=== PATIENT | male | born 1990 | race Caucasian/White ===

== ENCOUNTER 2018-10-29 20:21 | Observation (INO) | payer OTHER ==
[2018-10-29] MEDS ORDERED: ASPIRIN 81 MG PO STA (21:29)
--- NOTE | 2018-10-29 21:31 | ED ---
General Adult HPI - General Chief complaint: Chest Pain Stated complaint: Chest pain Time Seen by Provider: 10/29/18 21:30 Source: patient Mode of arrival: ambulatory Limitations: no limitations - Related Data Home Medications Medication Instructions Recorded Confirmed No Known Home Medications 10/29/18 10/29/18 Allergies Allergy/AdvReac Type Severity Reaction Status Date / Time No Known Allergies Allergy Verified 10/29/18 21:11 Review of Systems ROS Statement: Those systems with pertinent positive or pertinent negative responses have been documented in the HPI. ROS Other: All systems not noted in ROS Statement are negative. Past Medical History Past Medical History: No Reported History History of Any Multi-Drug Resistant Organisms: None Reported Past Surgical History: No Surgical Hx Reported Past Psychological History: No Psychological Hx Reported Smoking Status: Never smoker Past Alcohol Use History: Occasional Past Drug Use History: None Reported General Exam Limitations: no limitations Course Vital Signs 10/29/18 10/29/18 20:38 22:50 Temperature 99.1 F Pulse Rate 65 76 Respiratory 16 20 Rate Blood Pressure 194/100 134/84 O2 Sat by Pulse 96 98 Oximetry Medical Decision Making - Medical Decision Making Dictation was produced using [employer] dictation software. please excuse any grammatical, word or spelling errors. Chief Complaint: 28-year-old obese male presents chief complaint of chest pressure. History of Present Illness: Patient states that he is here today for chest pressure. Patient denies any medical problems. He does have strong family history of heart attacks in his father who had a heart attack at the age of 42. Patient reports that he was in the basement cleaning up when he had a couple episodes of chest pressure. Reports that symptoms resolved spontaneously. Patient did not want come to the emergency department however his significant other urged him to come. Patient does not have any symptoms at this time. Denies any numbness, paresthesias to his arms or legs. The ROS documented in this emergency department record has been reviewed and confirmed by me. Those systems with pertinent positive or negative responses have been documented in the HPI. All other systems are other negative and/or noncontributory. PHYSICAL EXAM: General Impression: Alert and oriented x3, not in acute distress HEENT: Normocephalic atraumatic, extra-ocular movements intact, pupils equal and reactive to light bilaterally, mucous membranes moist. Cardiovascular: Heart regular rate and rhythm, S1&S2 audible, no murmurs, rubs or gallops Chest: Lungs clear to auscultation bilaterally, no rhonchi, no wheeze, no rales Abdomen: Bowel sounds present, abdomen soft, non-tender, non-distended, no organomegaly Musculoskeletal: Pulses present and equal in all extremities, no peripheral edema Motor: Power 5/5 bilaterally, no focal deficits noted Neurological: CN II-XII grossly intact, no focal motor or sensory deficits noted Skin: Intact with no visualized rashes Psych: Normal affect and mood ED course: 78-year-old male presents with episode of chest pressure. Patient is obese. Denies any medical problems. Patient does not follow-up regularly with a primary care physician. EKG does not show any signs of STEMI. Vital signs upon arrival showed blood pressure 194 100, rest of vital signs within acceptable limits.Laboratory evaluation obtained. CBC, coag panel, metabolic panel is unremarkable. Cardiac enzymes are negative. Chest x-ray is negative. Patient was observed in emergency department and was symptom-free. Given patient's risk factors and strong family history we will place patient in observation unit for serial troponins. We will also put on a cardiology consultation. I believe patient would benefit from cardiology consultation in possibly cardiac stress test. Patient given aspirin EKG interpretation: Ventricular rate 70, normal sinus rhythm, AL interval 152, care is 78, QTc 412. No AL prolongation, no QTC prolongation, no ST or T-wave changes noted. Overall, this EKG is unremarkable - Lab Data Result diagrams: 10/29/18 21:45 10/29/18 21:45 Lab Results 10/29/18 10/29/18 10/29/18 Range/Units 21:45 21:45 21:45 WBC 8.3 (3.8-10.6) k/uL RBC 5.57 (4.30-5.90) m/uL Hgb 15.4 (13.0-17.5) gm/dL Hct 46.0 (39.0-53.0) % MCV 82.5 (80.0-100.0) fL MCH 27.7 (25.0-35.0) pg MCHC 33.6 (31.0-37.0) g/dL RDW 12.7 (11.5-15.5) % Plt Count 266 (150-450) k/uL Neutrophils % 60 % Lymphocytes % 29 % Monocytes % 6 % Eosinophils % 2 % Basophils % 1 % Neutrophils # 5.0 (1.3-7.7) k/uL Lymphocytes # 2.4 (1.0-4.8) k/uL Monocytes # 0.5 (0-1.0) k/uL Eosinophils # 0.2 (0-0.7) k/uL Basophils # 0.1 (0-0.2) k/uL PT (9.0-12.0) sec INR (<1.2) APTT (22.0-30.0) sec Sodium 139 (137-145) mmol/L Potassium 4.2 (3.5-5.1) mmol/L Chloride 102 (98-107) mmol/L Carbon Dioxide 28 (22-30) mmol/L Anion Gap 9 mmol/L BUN 15 (9-20) mg/dL Creatinine 0.74 (0.66-1.25) mg/dL Est GFR (CKD-EPI)AfAm >90 (>60 ml/min/1.73 sqM) Est GFR (CKD-EPI)NonAf >90 (>60 ml/min/1.73 sqM) Glucose 93 (74-99) mg/dL Calcium 9.5 (8.4-10.2) mg/dL Magnesium 1.8 (1.6-2.3) mg/dL Total Bilirubin 0.9 (0.2-1.3) mg/dL AST 61 H (17-59) U/L ALT 110 H (21-72) U/L Alkaline Phosphatase 64 (38-126) U/L Total Creatine Kinase 135 (55-170) U/L CK-MB (CK-2) 0.5 (0.0-2.4) ng/mL CK-MB (CK-2) Rel Index 0.4 Troponin I <0.012 (0.000-0.034) ng/mL Total Protein 7.7 (6.3-8.2) g/dL Albumin 4.6 (3.5-5.0) g/dL 10/29/18 Range/Units 21:45 WBC (3.8-10.6) k/uL RBC (4.30-5.90) m/uL Hgb (13.0-17.5) gm/dL Hct (39.0-53.0) % MCV (80.0-100.0) fL MCH (25.0-35.0) pg MCHC (31.0-37.0) g/dL RDW (11.5-15.5) % Plt Count (150-450) k/uL Neutrophils % % Lymphocytes % % Monocytes % % Eosinophils % % Basophils % % Neutrophils # (1.3-7.7) k/uL Lymphocytes # (1.0-4.8) k/uL Monocytes # (0-1.0) k/uL Eosinophils # (0-0.7) k/uL Basophils # (0-0.2) k/uL PT 10.4 (9.0-12.0) sec INR 1.0 (<1.2) APTT 26.8 (22.0-30.0) sec Sodium (137-145) mmol/L Potassium (3.5-5.1) mmol/L Chloride (98-107) mmol/L Carbon Dioxide (22-30) mmol/L Anion Gap mmol/L BUN (9-20) mg/dL Creatinine (0.66-1.25) mg/dL Est GFR (CKD-EPI)AfAm (>60 ml/min/1.73 sqM) Est GFR (CKD-EPI)NonAf (>60 ml/min/1.73 sqM) Glucose (74-99) mg/dL Calcium (8.4-10.2) mg/dL Magnesium (1.6-2.3) mg/dL Total Bilirubin (0.2-1.3) mg/dL AST (17-59) U/L ALT (21-72) U/L Alkaline Phosphatase (38-126) U/L Total Creatine Kinase (55-170) U/L CK-MB (CK-2) (0.0-2.4) ng/mL CK-MB (CK-2) Rel Index Troponin I (0.000-0.034) ng/mL Total Protein (6.3-8.2) g/dL Albumin (3.5-5.0) g/dL Disposition Clinical Impression: Chest pain Disposition: ADMITTED IP TO THIS [facility] Condition: Fair Referrals: Nonstaff,Physician [Primary Care Provider] - 1-2 days Decision Time: 23:22
[2018-10-29 21:57] LABS: Basophils # (A) 0.1 k/uL (0-0.2); Basophils % (A) 1 %; Eosinophils # (A) 0.2 k/uL (0-0.7); Eosinophils % (A) 2 %; HGB 15.4 gm/dL (13.0-17.5); Lymphocytes # (A) 2.4 k/uL (1.0-4.8); Lymphocytes % (A) 29 %; MCH 27.7 pg (25.0-35.0); MCHC 33.6 g/dL (31.0-37.0); MCV 82.5 fL (80.0-100.0); Mean Platelet Volume 6.2; Monocytes # (A) 0.5 k/uL (0-1.0); Monocytes % (A) 6 %; Neutrophils % (A) 60 %; Platelet Count 266 k/uL (150-450); RBC 5.57 m/uL (4.30-5.90); RDW 12.7 % (11.5-15.5); WBC 8.3 k/uL (3.8-10.6)
[2018-10-29 22:05] LABS: ALT 110 U/L (21-72); AST 61 U/L (17-59); Albumin 4.6 g/dL (3.5-5.0); Alkaline Phosphatase 64 U/L (38-126); Anion Gap 9 mmol/L; Blood Urea Nitrogen 15 mg/dL (9-20); Calcium 9.5 mg/dL (8.4-10.2); Carbon Dioxide 28 mmol/L (22-30); Chloride 102 mmol/L (98-107); Creatine Kinase 135 U/L (55-170); Glucose 93 mg/dL (74-99); Magnesium 1.8 mg/dL (1.6-2.3); Potassium 4.2 mmol/L (3.5-5.1); Sodium 139 mmol/L (137-145); Total Bilirubin 0.9 mg/dL (0.2-1.3); Total Protein 7.7 g/dL (6.3-8.2)
[2018-10-29 22:07] LABS: Partial Thromboplastin Time 26.8 sec (22.0-30.0); Prothrombin Time 10.4 sec (9.0-12.0)
--- NOTE | 2018-10-29 22:11 | XR ---
EXAMINATION TYPE: XR chest 2V DATE OF EXAM: 10/29/2018 COMPARISON: NONE HISTORY: Chest pain TECHNIQUE: Frontal and lateral views of the chest are obtained. FINDINGS: Heart and mediastinum are normal. Lungs are clear. Diaphragm is normal. Bony thorax appear s normal. There is a small linear density probably in the right middle lobe consistent with subsegmen kwaku atelectasis. IMPRESSION: Minimal subsegmental atelectasis. Normal heart.
[2018-10-29 22:17] LABS: Creatine Kinase MB 0.5 ng/mL (0.0-2.4); Troponin I <0.012 ng/mL (0.000-0.034)
[2018-10-29] MEDS ORDERED: NITROGLYCERIN SL TABS 0.4 MG TAB SUBLINGUAL PRN (23:22)
[2018-10-30 00:22] VITALS: RESP 18
[2018-10-30 00:30] VITALS: BMI 51.6
[2018-10-30 03:28] LABS: Cholesterol 207 mg/dL (<200); HDL Cholesterol 37 mg/dL (40-60); LDL Cholesterol,Calculated 139 mg/dL (0-99); Triglycerides 153 mg/dL (<150)
[2018-10-30 03:42] LABS: Creatine Kinase 106 U/L (55-170)
[2018-10-30 03:55] LABS: Creatine Kinase MB 0.3 ng/mL (0.0-2.4); Troponin I <0.012 ng/mL (0.000-0.034)
[2018-10-30] MEDS ORDERED: ASPIRIN 325 MG TAB PO SCH (09:00)
[2018-10-30] MEDS ORDERED: LOSARTAN 25 MG TAB PO SCH (09:30)
--- NOTE | 2018-10-30 10:45 | P.CRDCN ---
History of Present Illness History of present illness: This is a pleasant 28-year-old male with no significant past medical history. He is morbidly obese with a BMI of 51. He has not been to a physician for over 7 years. He denies history of coronary artery disease, hypertension, dyslipidemia and diabetes mellitus. We have been asked to see him in consultation for symptoms of chest pain. He states last 2 days he has had a pain that starts in the left precordial region and ripples out like someone is poking through his chest wall. Then it feels like someone is sitting on his chest. The pain lasts for approximately 20-30 seconds at a time and ultimately subsides on its own with no specific alleviating factors. Yesterday the pain came more frequently and consistently. He denies radiation to the arm, back, neck or jaw. He also denies any associated symptoms of shortness of breath, dizziness, palpitations, nausea or vomiting. Blood pressure on arrival 194/100. EKG reveals sinus mechanism with non-specific changes. No ST or T-wave abnormalities. Chest xray negative for an acute cardiopulmonary process. Laboratory data reviewed, WBC 8.3, hemoglobin 15.4, platelets 266, sodium 139, potassium 4.2, creatinine 0.74, AST 61, ALT 110, magnesium 1.8, cardiac enzymes negative 2, LDL 139, HDL 37, triglycerides 153 and total cholesterol 207. He takes no daily cardiac medications At the time of my exam: CONSTITUTIONAL: Denies fever. Denies chills. EYES: Denies blurred vision. Denies vision changes. Denies eye pain. EARS, NOSE, MOUTH & THROAT: Denies headache. Denies sore throat. Denies ear pain. CARDIOVASCULAR: Denies chest pain. Denies shortness of breath. Denies orthopnea. Denies PND. Denies palpitations. RESPIRATORY: Denies cough. GASTROINTESTINAL: Denies abdominal pain. Denies diarrhea. Denies constipation. Denies nausea. Denies vomiting. MUSCULOSKELETAL: Denies myalgias. INTEGUMENTARY: Denies pruitis. Denies rash. NEUROLOGIC: Denies numbness. Denies tingling. Denies weakness. PSYCHIATRIC: Denies anxiety. Denies depression. ENDOCRINE: Denies fatigue. Denies weight change. Denies polydipsia. Denies polyurina. GENITOURINARY: Denies burning, hematuria or urgency with micturation. HEMATOLOGIC: Denies history of anemia. Denies bleeding. Manual blood pressure 145/85 heart rate 64 afebrile maintaining oxygen saturation on room air GENERAL: This is a 28-year-old occasion male in no apparent distress at the time of my examination. Morbidly obese. HEENT: Head is atraumatic, normocephalic. Pupils are equal, round. Sclerae anicteric. Conjunctivae are clear. Mucous membranes of the mouth are moist. Neck is supple. There is no jugular venous distention. No carotid bruit is heard. LUNGS: Clear to auscultation no wheezes, rales or rhonchi. No chest wall tenderness is noted on palpation or with deep breathing. HEART: Regular rate and rhythm without murmurs, rubs or gallops. S1 and S2 heard. ABDOMEN: Soft, nontender. Bowel sounds are heard. No organomegaly noted. EXTREMITIES: No evidence of peripheral edema and no calf tenderness noted. VASCULAR: Radial and dorsalis pedis pulses palpated, no evidence of clubbing. NEUROLOGIC: Patient is awake, alert and oriented x3. ASSESSMENT Chest pain, atypical. An acute coronary event has been ruled out. Hypertension Dyslipidemia Morbid obesity, BMI 51 Family history of premature coronary artery disease with father passing at 52 from [place]. PLAN Acute coronary event has been ruled out. Obtain 2-D echocardiogram and Doppler study to assess cardiac structure and function. Initiate him on losartan 25 mg daily. Recommend he obtain a blood pressure cuff to check his pressures at home, keep a log and bring to his follow-up appointment. Suggest lifestyle modifications in the form of diet and exercise. Dietary consultation. Follow-up in the office with Dr. Thomas in 2 weeks for outpatient stress testing once blood pressure is under control. Thank you kindly for this consultation. Nurse Practitioner note has been reviewed, I agree with a documented findings and plan of care. Patient was seen and examined. Past Medical History Past Medical History: No Reported History Additional Past Medical History / Comment(s): Born with one tear duct History of Any Multi-Drug Resistant Organisms: None Reported Past Surgical History: No Surgical Hx Reported Additional Past Surgical History / Comment(s): FX wrist as a child. Past Anesthesia/Blood Transfusion Reactions: No Reported Reaction Smoking Status: Never smoker - Past Family History Father Family Medical History: Myocardial Infarction ([place]) Medications and Allergies Home Medications Medication Instructions Recorded Confirmed Type No Known Home Medications 10/29/18 10/30/18 History Allergies Allergy/AdvReac Type Severity Reaction Status Date / Time No Known Allergies Allergy Verified 10/30/18 00:14 Physical Exam Vitals: Vital Signs Temp Pulse Pulse Resp BP BP BP 10/30/18 08:28 145/85 10/30/18 08:00 64 18 10/30/18 06:40 97.5 F L 64 18 133/83 10/30/18 03:44 18 10/30/18 03:33 97.6 F 62 18 179/79 10/30/18 00:21 97.9 F 54 L 18 194/84 10/30/18 00:00 18 10/29/18 22:50 76 20 134/84 10/29/18 20:38 99.1 F 65 16 194/100 Pulse Ox 10/30/18 08:28 10/30/18 08:00 10/30/18 06:40 95 10/30/18 03:44 10/30/18 03:33 95 10/30/18 00:21 99 10/30/18 00:00 10/29/18 22:50 98 10/29/18 20:38 96 Intake and Output 10/29/18 10/30/18 10/30/18 22:59 06:59 14:59 Intake Total 20 Balance 20 Intake: Amount of Fluid Infused ( 20 ml) Other: Voiding Method Toilet Urinal Weight 149.685 kg 149.6 kg Results 10/29/18 21:45 10/29/18 21:45 Cardiac Enzymes 10/29/18 10/29/18 10/30/18 Range/Units 21:45 21:45 02:58 AST 61 H (17-59) U/L CK-MB (CK-2) 0.5 0.3 (0.0-2.4) ng/mL Troponin I <0.012 <0.012 (0.000-0.034) ng/mL Coagulation 10/29/18 Range/Units 21:45 PT 10.4 (9.0-12.0) sec APTT 26.8 (22.0-30.0) sec Lipids 10/30/18 Range/Units 02:58 Triglycerides 153 H (<150) mg/dL Cholesterol 207 H (<200) mg/dL HDL Cholesterol 37 L (40-60) mg/dL CBC 10/29/18 Range/Units 21:45 WBC 8.3 (3.8-10.6) k/uL RBC 5.57 (4.30-5.90) m/uL Hgb 15.4 (13.0-17.5) gm/dL Hct 46.0 (39.0-53.0) % Plt Count 266 (150-450) k/uL Comprehensive Metabolic Panel 10/29/18 Range/Units 21:45 Sodium 139 (137-145) mmol/L Potassium 4.2 (3.5-5.1) mmol/L Chloride 102 (98-107) mmol/L Carbon Dioxide 28 (22-30) mmol/L BUN 15 (9-20) mg/dL Creatinine 0.74 (0.66-1.25) mg/dL Glucose 93 (74-99) mg/dL Calcium 9.5 (8.4-10.2) mg/dL AST 61 H (17-59) U/L ALT 110 H (21-72) U/L Alkaline Phosphatase 64 (38-126) U/L Total Protein 7.7 (6.3-8.2) g/dL Albumin 4.6 (3.5-5.0) g/dL Current Medications Generic Name Dose Route Start Last Admin Trade Name Freq PRN Reason Stop Dose Admin Losartan Potassium 25 mg 10/30/18 09:30 Cozaar PO DAILY MILADYS Nitroglycerin 0.4 mg 10/29/18 23:22 Nitrostat SUBLINGUAL Q5M PRN Chest Pain Intake and Output 10/29/18 10/30/18 10/30/18 22:59 06:59 14:59 Intake Total 20 Balance 20 Intake: Amount of Fluid Infused ( 20 ml) Other: Voiding Method Toilet Urinal Weight 149.685 kg 149.6 kg 10/29/18 21:45 10/29/18 21:45
[2018-10-30 11:46] VITALS: BP 134/85; PULSE 78; TEMP 97.3
[2018-10-30 11:49] LABS: Creatine Kinase 93 U/L (55-170)
[2018-10-30 12:02] LABS: Troponin I <0.012 ng/mL (0.000-0.034)
[2018-10-30 12:34] LABS: Creatine Kinase MB 0.3 ng/mL (0.0-2.4)
--- NOTE | 2018-10-30 14:00 | P.HPIM ---
History of Present Illness 28-year-old the pleasant male came in with compensative for chest pain mostly precipitated by eating. But does not appear to be like gastric esophageal reflux disease. Patient still has his gallbladder patient is morbidly obese patient was evaluated for acute coronary syndromes ruled out acute coronary syndromes was evaluated by cardiology. They cleared him for discharge patient pain appears to be either musculoskeletal or gastric esophageal reflux disease patient will be discharged on Prilosec. Patient is morbidly obese does have elevated LDL extensive dietary counseling was provided regarding weight loss lifestyle changes counseling was provided to the patient. Patient blood pressure was elevated yesterday but today it was okay I do not believe patient has essential hypertension but the patient is willing to take her losartan that was prescribed by cardiology and patient will follow to cardiology as an outpatient patient will check his blood pressure on regular basis at home take it to the branch lead who can make the patient regarding continuation of this medication as an outpatient. Please avoid cardiology documentation regarding EKG findings and troponins are negative. Patient has mildly elevated ALT and AST from possible nonalcoholic steatohepatitis Review of Systems REVIEW OF SYSTEMS: CONSTITUTIONAL: No fever, no malaise, no fatigue. HEENT: No recent visual problems or hearing problems. Denied any sore throat. CARDIOVASCULAR: No orthopnea, PND, no palpitations, no syncope. PULMONARY: No shortness of breath, no cough, no hemoptysis. GASTROINTESTINAL: No diarrhea, no nausea, no vomiting, no abdominal pain. NEUROLOGICAL: No headaches, no weakness, no numbness. HEMATOLOGICAL: Denies any bleeding or petechiae. GENITOURINARY: Denies any burning micturition, frequency, or urgency. MUSCULOSKELETAL/RHEUMATOLOGICAL: Denies any joint pain, swelling, or any muscle pain. ENDOCRINE: Denies any polyuria or polydipsia. The rest of the 14-point review of systems is negative. Past Medical History Past Medical History: No Reported History Additional Past Medical History / Comment(s): Born with one tear duct History of Any Multi-Drug Resistant Organisms: None Reported Past Surgical History: No Surgical Hx Reported Additional Past Surgical History / Comment(s): FX wrist as a child. Past Anesthesia/Blood Transfusion Reactions: No Reported Reaction Smoking Status: Never smoker - Past Family History Father Family Medical History: Myocardial Infarction ([place]) Medications and Allergies Home Medications Medication Instructions Recorded Confirmed Type No Known Home Medications 10/29/18 10/30/18 History Allergies Allergy/AdvReac Type Severity Reaction Status Date / Time No Known Allergies Allergy Verified 10/30/18 00:14 Physical Exam Vitals: Vital Signs Temp Pulse Pulse Resp BP BP BP 10/30/18 11:52 78 18 10/30/18 11:44 97.3 F L 78 18 134/85 10/30/18 08:28 145/85 10/30/18 08:00 64 18 10/30/18 06:40 97.5 F L 64 18 133/83 10/30/18 03:44 18 10/30/18 03:33 97.6 F 62 18 179/79 10/30/18 00:21 97.9 F 54 L 18 194/84 10/30/18 00:00 18 10/29/18 22:50 76 20 134/84 10/29/18 20:38 99.1 F 65 16 194/100 Pulse Ox 10/30/18 11:52 10/30/18 11:44 96 10/30/18 08:28 10/30/18 08:00 10/30/18 06:40 95 10/30/18 03:44 10/30/18 03:33 95 10/30/18 00:21 99 10/30/18 00:00 10/29/18 22:50 98 10/29/18 20:38 96 Intake and Output 10/29/18 10/30/18 10/30/18 22:59 06:59 14:59 Intake Total 20 740 Balance 20 740 Intake: Amount of Fluid Infused ( 20 ml) Oral 740 Other: Voiding Method Toilet Urinal Weight 149.685 kg 149.6 kg 149.6 kg PHYSICAL EXAMINATION: GENERAL: The patient is alert and oriented x3, not in any acute distress. Morbidly obese HEENT: Pupils are round and equally reacting to light. EOMI. No scleral icterus. No conjunctival pallor. Normocephalic, atraumatic. No pharyngeal erythema. No thyromegaly. CARDIOVASCULAR: S1 and S2 present. No murmurs, rubs, or gallops. PULMONARY: Chest is clear to auscultation, no wheezing or crackles. ABDOMEN: Soft, nontender, nondistended, normoactive bowel sounds. No palpable organomegaly. MUSCULOSKELETAL: No joint swelling or deformity. EXTREMITIES: No cyanosis, clubbing, or pedal edema. NEUROLOGICAL: Gross neurological examination did not reveal any focal deficits. SKIN: No rashes. Results CBC & Chem 7: 10/29/18 21:45 10/29/18 21:45 Labs: Abnormal Lab Results - Last 24 Hours (Table) 10/29/18 10/30/18 Range/Units 21:45 02:58 AST 61 H (17-59) U/L ALT 110 H (21-72) U/L Triglycerides 153 H (<150) mg/dL Cholesterol 207 H (<200) mg/dL LDL Cholesterol, Calc 139 H (0-99) mg/dL HDL Cholesterol 37 L (40-60) mg/dL Assessment and Plan Plan: -Chest pain: Ruled out acute coronary syndromes and unstable angina area chest pain is secondary to gaseous physical reflux disease or musculoskeletal in nature patient will be discharged on Prilosec for 14 days. -Elevated blood pressure on admission: Considering all the blood pressures during this hospitalization my suspicion is low for essential hypertension weight loss will help him with the blood pressure -Hyperlipidemia counseling was provided regarding his diet as mentioned above -Morbid obesity dietary counseling was provided as mentioned above -Gastroesophageal reflux disease. Patient will be discharged today patient will benefit from outpatient dietary follow-up. Patient will follow with PCP Dr. Browning in about 3-7 days
--- NOTE | 2018-10-30 14:01 | P.DS ---
Providers Date of admission: 10/29/18 23:23 Attending physician: Kina Alcazar Consults: 10/29/18 23:23 Consult Physician Urgent Consulting Provider: Gallito Douglas Consult Reason/Comments: chest pain Do you want consulting provider notified?: Yes Primary care physician: Physician Nonstaff Hospital Course: Please refer to my HPI Patient Condition at Discharge: Fair Plan - Discharge Summary New Discharge Prescriptions: No Action No Known Home Medications Discharge Medication List No Known Home Medications 10/29/18 [History] Follow up Appointment(s)/Referral(s): Nelson Thomas MD [STAFF PHYSICIAN] - 11/16/18 1:30 pm Nonstaff,Physician [Primary Care Provider] - 1-2 days Patient Instructions/Handouts: Chest Pain (DC), Heart Healthy Diet (DC) Discharge Disposition: HOME SELF-CARE
--- NOTE | 2018-10-30 15:00 | ECHOF ---
Referral Reason:cp MEASUREMENTS -------- HEIGHT: 170.2 cm WEIGHT: 149.2 kg BP: 133/82 IVSd: 1.2 cm (0.6 - 1.1) LVIDd: 4.7 cm (3.9 - 5.3) LVPWd: 1.2 cm (0.6 - 1.1) IVSs: 1.6 cm LVIDs: 3.3 cm LVPWs: 1.9 cm LA Diam: 2.9 cm (2.7 - 3.8) RVIDd: 2.9 cm (< 3.3) LAESV Index (A-L): 16.89 ml/m Ao Diam: 3.2 cm (2.0 - 3.7) AV Cusp: 2.5 cm (1.5 - 2.6) EPSS: 0.4 cm MV E Deangelo: 0.91 m/s MV DecT: 232 ms MV A Deangelo: 0.63 m/s MV E/A Ratio: 1.45 MV EF SLOPE: 105.91 mm/s (70 - 150) MV EXCURSION: 24.34 mm (> 18.000) FINDINGS -------- Sinus rhythm. This was a technically adequate study. The left ventricular size is normal. There is borderline concentric left ventricular hypertrophy. Overall left ventricular systolic function is normal with, an EF between 60 - 65 %. The right ventricle is normal in size. Normal LA size by volume 22+/-6 ml/m2. The right atrium is normal in size. The aortic valve is trileaflet and appears structurally normal. The mitral valve is normal. The tricuspid valve appears structurally normal. There is no pulmonic regurgitation present. The aortic root size is normal. Normal inferior vena cava with normal inspiratory collapse consistent with estimated right atrial pre ssure of 5 mmHg. There is no pericardial effusion. CONCLUSIONS -------- 1. Sinus rhythm. 2. This was a technically adequate study. 3. The left ventricular size is normal. 4. There is borderline concentric left ventricular hypertrophy. 5. Overall left ventricular systolic function is normal with, an EF between 60 - 65 %. 6. The right ventricle is normal in size. 7. Normal LA size by volume 22+/-6 ml/m2. 8. The right atrium is normal in size. 9. The aortic valve is trileaflet and appears structurally normal. 10. The mitral valve is normal. 11. The tricuspid valve appears structurally normal. 12. There is no pulmonic regurgitation present. 13. The aortic root size is normal. 14. Normal inferior vena cava with normal inspiratory collapse consistent with estimated right atrial pressure of 5 mmHg. 15. There is no pericardial effusion. [employer]IE MAKER: Abby Cramer RDCS
== END 2018-10-30 14:30 | disposition home or self-care (01) ==
LOC: EC 20:21 → 1SOBS 23:23
PROVIDERS: ADMIT Hospitalist; ATTEND Hospitalist
DX: R07.2 Precordial pain (principal); E66.01 Morbid (severe) obesity due to excess calories; Z68.43 Body mass index [BMI] 50.0-59.9, adult; R74.0 Nonspecific elevation of levels of transaminase and lactic acid dehydrogenase [LDH]; Z82.49 Family history of ischemic heart disease and other diseases of the circulatory system; K21.9 Gastro-esophageal reflux disease without esophagitis; E78.5 Hyperlipidemia, unspecified; R03.0 Elevated blood-pressure reading, without diagnosis of hypertension
CPT/HCPCS: 99285; 36415; 93005; 93306; 80061; 80053; 82550 ×2; 82553 ×2; 83735; 84484 ×2; 85025; 85610; 85730; 71046; G0378 ×2

== ENCOUNTER 2019-10-03 22:46 | Emergency (ER) | payer OTHER ==
[2019-10-03 23:01] VITALS: BP 197/106; PULSE 103; RESP 19; TEMP 98.2
--- NOTE | 2019-10-03 23:20 | ED ---
ENT HPI - General Chief complaint: Upper Respiratory Infection Stated complaint: URI Time Seen by Provider: 10/03/19 23:04 Source: patient, RN notes reviewed, old records reviewed Mode of arrival: ambulatory Limitations: no limitations - History of Present Illness Initial comments: This is a 29-year-old male date ER for evaluation of severe sore throat with increased cough and congestion hoarse voice. Patient's episodic fevers difficulty with swallowing pins and needles in his throat. No sick contacts no travel history. Patient also [place] of bilateral ear pain worse on the right than left. No new rashes no nausea vomiting or diarrhea patient's able to drink without difficulty MD complaint: sore throat, ear pain (Bilateral) -: week(s) Location: R ear, L ear, throat Severity: moderate Severity scale (1-10): 6 Quality: burning, aching Consistency: constant Improves with: none Worsens with: none Context- Ear: recent illness Associated Symptoms: fever - Related Data Previous Rx's Medication Instructions Recorded Losartan [Cozaar] 25 mg PO DAILY #90 tab 10/30/18 Amoxic-Pot Clav 875-125Mg 1 tab PO Q12HR #20 tablet 10/03/19 [Augmentin 875-125] Allergies Allergy/AdvReac Type Severity Reaction Status Date / Time No Known Allergies Allergy Verified 10/03/19 23:01 Review of Systems ROS Statement: Those systems with pertinent positive or pertinent negative responses have been documented in the HPI. ROS Other: All systems not noted in ROS Statement are negative. Past Medical History Past Medical History: No Reported History Additional Past Medical History / Comment(s): Born with one tear duct History of Any Multi-Drug Resistant Organisms: None Reported Past Surgical History: No Surgical Hx Reported Additional Past Surgical History / Comment(s): FX wrist as a child. Past Anesthesia/Blood Transfusion Reactions: No Reported Reaction Past Psychological History: Anxiety Smoking Status: Never smoker Past Alcohol Use History: Occasional Past Drug Use History: None Reported - Past Family History Father Family Medical History: Myocardial Infarction ([place]) General Exam Limitations: no limitations General appearance: alert, in no apparent distress Head exam: Present: atraumatic, normocephalic, normal inspection Eye exam: Present: normal appearance, PERRL, EOMI. Absent: scleral icterus, conjunctival injection, periorbital swelling ENT exam: Present: mucous membranes moist. Absent: normal exam (Bilateral pharyngeal edema and erythema with exudate), TM's normal bilaterally (bL TM erythema) Neck exam: Present: normal inspection. Absent: tenderness, meningismus, lymphadenopathy Respiratory exam: Present: normal lung sounds bilaterally. Absent: respiratory distress, wheezes, rales, rhonchi, stridor Cardiovascular Exam: Present: regular rate, normal rhythm, normal heart sounds. Absent: systolic murmur, diastolic murmur, rubs, gallop, clicks GI/Abdominal exam: Present: soft, normal bowel sounds. Absent: distended, tenderness, guarding, rebound, rigid Extremities exam: Present: normal inspection, full ROM, normal capillary refill. Absent: tenderness, pedal edema, joint swelling, calf tenderness Back exam: Present: normal inspection Neurological exam: Present: alert, oriented X3, CN II-XII intact Psychiatric exam: Present: normal affect, normal mood Skin exam: Present: warm, dry, intact, normal color. Absent: rash Course Vital Signs 10/03/19 22:55 Temperature 98.2 F Pulse Rate 103 H Respiratory 19 Rate Blood Pressure 197/106 O2 Sat by Pulse 95 Oximetry Medical Decision Making - Medical Decision Making 29 female to the ER of for evaluation of significant illness, upper respiratory infection will be placed on antibiotics patient can be discharged home Disposition Clinical Impression: Pharyngitis, Acute upper respiratory infection, Otitis media Disposition: HOME SELF-CARE Condition: Good Instructions (If sedation given, give patient instructions): Upper Respiratory Infection (ED), Pharyngitis (ED), Serous Otitis Media (ED) Prescriptions: Amoxic-Pot Clav 875-125Mg [Augmentin 875-125] 1 tab PO Q12HR #20 tablet Is patient prescribed a controlled substance at d/c from ED?: No Referrals: None,Stated [Primary Care Provider] - 1-2 days
[2019-10-03] MEDS ORDERED: AMOXIC-POT CLAV 875-125MG 1 EACH TAB PO STA (23:29)
[2019-10-03] MEDS ORDERED: ACETAMINOPHEN TAB 500 MG TAB PO STA (23:29)
[2019-10-03] MEDS ORDERED: DEXAMETHASONE SOD PHOSPHATE 10 MG/ML 1 ML VIAL IM STA (23:29)
[2019-10-03] MEDS ORDERED: IBUPROFEN 800 MG TAB PO STA (23:29)
[2019-10-03] MEDS ORDERED: AMOXIC-POT CLAV 875MG STARTER 2 EACH TABLET PO STA (23:29)
== END 2019-10-04 00:03 | disposition home or self-care (01) ==
LOC: EC 22:46
DX: J02.9 Acute pharyngitis, unspecified (principal); H66.93 Otitis media, unspecified, bilateral
CPT/HCPCS: 99283; 96372; J1100

== ENCOUNTER → 2020-12-29 | Outpatient (CLI) | payer OTHER | END | disposition home or self-care (01) | LOC: LABWHC1 15:18 | PROVIDERS: ATTEND Nurse Practitioner Family | DX: Z01.818 Encounter for other preprocedural examination (principal); I10 Essential (primary) hypertension | CPT/HCPCS: 36415; 93005 ==